=== PATIENT | male | born 1985 | race Caucasian/White ===

== ENCOUNTER → 2019-07-03 | Outpatient (CLI) | payer BC ==
--- NOTE | 2019-07-03 12:29 | Diagnostic Imaging Report ---
TECHNIQUE: Magnetic resonance imaging of the RIGHT ELBOW was performed WITHOUT injected contrast. HISTORY: Pain COMPARISON: None available. FINDINGS: Ligaments and tendons: The medial and lateral collateral ligament complexes are intact. The common flexor tendon group and common extensor tendon group origins at the humeral epicondyles are intact. The distal biceps tendon, triceps tendon and brachialis tendon are intact. Ulnar nerve: Normal, and in groove. Bone and bone marrow: No focal or infiltrative bone marrow replacing abnormality. No acute fracture. Articular cartilage: No focal lesions are seen. Soft tissues: Otherwise, unremarkable. IMPRESSION: No acute osseous or soft tissue abnormality Signed by: Dr. Jordi Self M.D. on 07/03/2019 12:26 PM
== END ==
LOC: MRI 10:18
PROVIDERS: ATTEND Specialist
DX: S46.211A Strain of muscle, fascia and tendon of other parts of biceps, right arm, initial encounter (principal)